=== PATIENT | female | born 2005 | race Two or more races ===

== ENCOUNTER 2024-03-04 12:24 | Emergency (ER) | payer MEDICAID, OTHER ==
[~2024-03-04] VITALS: Ht 139.7 cm; Wt 45.4 kg
[2024-03-04 15:26] LABS: Urine Bacteria None Seen /hpf (None Seen)
[2024-03-04 16:28] LABS: Urine Blood 3+ /uL (Negative); Urine Clarity Clear (Clear); Urine Color Light-Yellow (Yellow); Urine Protein, UAD Negative (Negative); Urine Specific Gravity 1.019 (1.001-1.035); Urine Urobilinogen Normal (Negative); Urine WBC 4 /hpf (0 - 5)
[2024-03-04 17:54] LABS: Basophils # (auto) 0.1 10 ^3/uL (0-0.2); Basophils % (auto) 0.9 % (0.0-2.0); Eosinophils # (auto) 0.1 10 ^3/uL (0-0.8); Eosinophils % (auto) 1.6 % (0.0-7.0); Hematocrit 40.6 % (36.0-46.0); Hemoglobin 13.9 g/dL (12.2-16.2); Lymphocytes # (auto) 2.2 10 ^3/uL (0.4-5.4); Lymphocytes % (auto) 33.1 % (10.0-50.0); Mean Corpuscular Hemoglobin 30.6 pg (28.0-32.0); Mean Corpuscular Hgb Conc. 34.2 g/dL (32.0-36.0); Mean Corpuscular Volume 89.5 fL (80.0-100.0); Monocytes # (auto) 0.5 10 ^3/uL (0-1.3); Monocytes % (auto) 7.2 % (0.0-12.0); Neutrophils # (auto) 3.8 10 ^3/uL (1.6-8.6); Neutrophils % (auto) 57.2 % (37.0-80.0); Nucleated Red Blood Cells % 0.1 %; Red Blood Cells 4.53 10^6/uL (4.0-5.20); Red Cell Distribution Width 12.8 % (11.8-14.3); White Blood Cell 6.7 10^3/uL (4.4-10.8)
[2024-03-04 18:18] LABS: Chloride 110 mmol/L (98-107); Potassium 4.6 mmol/L (3.5-5.1); Sodium 142 mmol/L (136-145)
[2024-03-04 18:19] LABS: Anion Gap 10 (5-15); Calcium 10.3 mg/dL (8.5-10.1); Carbon Dioxide 22 mmol/L (20-30)
[2024-03-04 18:24] LABS: BUN/Creatinine Ratio 17.3 (10.0-20.0); Blood Urea Nitrogen 18 mg/dL (9-23); Glucose 118 mg/dL (74-106)
[2024-03-04 18:31] VITALS: BP 112/67; PULSE 75; RESP 18; TEMP 98.4; O2SAT 96
[2024-03-04] MEDS ORDERED: ACET500T58 PO (18:41)
[2024-03-04] MEDS ORDERED: CYCL-614 PO (18:41)
[2024-03-04] MEDS: HYDROcodone-ACET 5/325MG TAB PO ONE (19:18)
[2024-03-04] MEDS: ONDANSETRON ODT 4 MG TAB PO ONE (19:18)
== END 2024-03-04 19:47 | disposition home or self-care (01) ==
LOC: ER 12:24
DX: S39.012A Strain of muscle, fascia and tendon of lower back, initial encounter (principal); R81 Glycosuria; Z87.898 Personal history of other specified conditions; X58.XXXA Exposure to other specified factors, initial encounter; Y93.89 Activity, other specified; Y92.89 Other specified places as the place of occurrence of the external cause; Y99.8 Other external cause status
CPT/HCPCS: 36415; 74176; 80048; 81001; 81025; 82962; 85025; 99284; Q0162